=== PATIENT | male | born 1990 | race Two or more races ===

== ENCOUNTER 2025-10-10 20:54 | Emergency (ER) | payer SELFPAY ==
[~2025-10-10] VITALS: Ht 167.6 cm; Wt 77.5 kg
[2025-10-10 21:03] VITALS: BP 136/98; RESP 20; TEMP 98.3; O2SAT 98
[2025-10-10 21:24] VITALS: PULSE 104
--- NOTE | 2025-10-10 21:24 | ED.PDOC ---
History of Present Illness HPI Comments 35-year-old male who came to ER for shortness of breath. Patient states for the past 2 days he has been having dry and nonproductive cough, associated with shortness of breath, midsternal chest pains, throat pain. Denies any fever. Saturating 98% on room air REVIEW OF SYSTEMS: General: No fever, no chills, or fatigue HEENT: (+) throat pain, no earache, no congestion, no neck pain. Cardiac: (+) chest pain. No palpitations. Lungs: (+) shortness of breath, (+) cough. GI: No nausea, no vomiting, no diarrhea, no constipation, no abdominal pain : No dysuria, frequency, or urgency. No hematuria. Musculoskeletal: No joint pain , no joint swelling, no extremity edema. Skin: No rash, no itching. Neuro: No headache, no dizziness, no weakness EXAM: General: Awake, alert and oriented. No acute distress. Skin: Skin in warm, dry and intact. Appropriate color for ethnicity. HEENT: The head is normocephalic and atraumatic. Conjunctivae are clear without exudates or hemorrhage. Sclera is non-icteric. EOM are intact. No signs of nystagmus. Eyelids are normal in appearance without swelling or lesions. Oral mucosa is pink and moist Neck: The neck is supple with normal range of motion. No JVD. Cardiac: Heart rate and rhythm are normal. No murmurs, gallops, or rubs are auscultated. Respiratory: No signs of respiratory distress. Lung sounds are clear in all lobes bilaterally without rales, rhonchi, or wheezes. Abdominal: Abdomen is soft, non-tender without distention. Bowel sounds are present and normoactive in all four quadrants. Extremities: Upper and lower extremities are atraumatic in appearance without deformity or edema. Neurological: The patient is awake, alert and oriented to person, place, and time with normal speech. Speech is clear. There is no facial asymmetry. Psychiatric: Appropriate mood and affect. Good judgement and insight Chief Complaint: Shortness of Breath Time Seen by MD: 21:23 Reviewed Notes: Nurses Notes Allergies: Coded Allergies: NO KNOWN ALLERGIES (Unverified , 10/10/25) Information Source: Patient Mode of Arrival: Ambulatory Past Medical History PAST MEDICAL HISTORY: Denies Surgical History: Denies all surgeries Family History Family History: Reviewed,noncontributory to illness Social History Smoker: Cigarettes Alcohol: Denies ETOH Use Drugs: Denies Drug Use Lives In: Home Was a procedure done? Was a procedure done?: No EKG EKG : Pulse Rate (adult): 104 Cardiac Rhythm: ST Differential Dx Considerations may include: Anemia, electrolyte imbalance, pneumonia, coronary artery disease, viral syndrome, upper respiratory infection, bronchitis X-Ray, Labs, Meds, VS Vital Signs Date Time Temp Pulse Resp B/P (MAP) Pulse Ox O2 Delivery O2 Flow Rate FiO2 10/10/25 21:03 98.3 112 20 136/98 98 98.3 Time of 1ST Reevaluation: 21:20 Reevaluation 1ST: Unchanged Patient Education/Counseling: Need For Follow Up Family Education/Counseling: No Family Present SEPSIS Sepsis Screen Date sepsis recognized/suspect: Oct 10, 2025 Time Sepsis recognized/suspect: 2105 Recent Procedure: No On Antibiotic Therapy: No Respiratory Rate >20: No Heart Rate >90: Yes Temp<36 C (96.8 F) or >38.3 C: No SBP <90 or MAP <65 mmHG: No New Acute Mental Status Change: No Is the patient on CPAP, BIPAP,: No Physician Orders Electrocardigram (10/10/25 21:08) Electrocardigram (10/10/25 22:08) Vital Signs Date Time Temp Pulse Resp B/P (MAP) Pulse Ox O2 Delivery O2 Flow Rate FiO2 10/10/25 21:03 98.3 112 20 136/98 98 98.3 Critical Care Note Critical Care Time?: No Stability Stability form required: No Heart Score Heart Score: Heart Score Response (Comments) Value History N/A 0 EKG N/A 0 Age N/A 0 Risk Factors N/A 0 Troponin N/A 0 Total 0 I personally scribed for SUNSHINE JARQUIN MD ([email or web address]) on 10/10/25 at 21:24. Electronically submitted by Sandip Diehl ([facility] SUNSHINE JARQUIN MD Oct 10, 2025 21:24
[2025-10-10] MEDS ORDERED: ALBUTEROL SULF 2.5 MG/0.5ML(0.5%) NEB SOLN NEB ONE (21:30)
[2025-10-10] MEDS ORDERED: ACETAMINOPHEN 325 MG TAB PO ONE (21:30)
--- NOTE | 2025-10-13 10:07 | ECG ---
[facility] Test Date: 2025-10-10 Test Time: 21:10:38 Pat Name: HOLLY CASSIDY Department: Room: Gender: M Roof Tile Layer: RADHA : 1990 Requested By: SUNSHINE JARQUIN Order Number: [id number] Reading MD: Measurements Intervals [place] Rate: 104 P: 55 NE: 132 QRS: 43 QRSD: 79 T: 32 QT: 321 QTc: 423 Interpretive Statements Sinus tachycardia Please click the below link to view image of tracing.
== END 2025-10-10 22:27 | disposition left against medical advice (07) ==
LOC: ER 20:54
DX: R06.02 Shortness of breath (principal); R07.89 Other chest pain; R05.9 Cough, unspecified; F17.210 Nicotine dependence, cigarettes, uncomplicated
CPT/HCPCS: 93005